=== PATIENT | male | born 1950 | race Caucasian/White ===

== ENCOUNTER → 2023-07-09 01:17 | Outpatient (CLI) | payer MEDICARE, SELFPAY ==
--- NOTE | 2023-07-09 07:29 | DI.CT_ITS ---
Exam(s) CT ABDOMEN PELVIS W EXAM: CT ABDOMEN PELVIS W CLINICAL HISTORY: abdominal pain, vomitting,r10.9,r11.10. TECHNIQUE: Imaging Protocol: Axial computed tomography images with coronal and sagittal reformatted images were created and reviewed CONTRAST MATERIAL: Intravenous: Omnipaque 350 Contrast volume:100 ml Oral: yes COMPARISON: CT ABD PELVIS WITH CONTRAST from 11/08/2009 FINDINGS: ABDOMEN: Lung Bases: Emphysematous changes. Large bleb right lower lobe. Liver: Normal density. No measurable mass. Gallbladder and biliary tract: No radiodense calculus or dilation. Pancreas: Normal density, no abnormal calcifications or inflammatory process. Spleen: Normal. Kidneys: Normal size, contour and axis. No radiodense stones or obstructive uropathy. No suspicious m asses seen. Adrenal glands: No masses seen. Abdominal Aorta: Mild mural thrombus. Mild focal delete the dilatation mid aorta 2.5 cm. Atherosclero tic changes. Soft tissues: Unremarkable. PELVIS: Bladder: Not well distended. Diffuse wall thickening. No calculi.No focal mass. Bowel: Mild diffuse dilatation of small bowel without transition point. Findings could represent ente ritis. Diverticulosis throughout colon. No evidence of diverticulitis. Sigmoid anastomosis is unremar kable.. Appendix normal. Peritoneal cavity: No ascites, collection or mesenteric inflammatory response. Bones: Degenerative disc changes in the lumbar spine. Reproductive organs: Mildly enlarged prostate. Lymph nodes: Unremarkable. Impression: Mild diffuse small bowel dilatation without wall thickening could indicate enteritis. No findings to suggest obstruction. Administered oral contrast extends to distal small bowel. Severe diverticulosis. No evidence of diverticulitis. RADIATION DOSE DELIVERED: 650.63mGy.cm Total DLP DATA REPOSITORY: All CT scans at this facility are submitted to the National Radiology Data Registry (NRDR) Dose Index Registry (DIR) with the [employer] ([employer]). RADIATION OPTIMIZATION: All CT scans at this facility use at least one of these dose optimization te chniques: automated exposure control; mA and/or kV adjustment per patient size (includes targeted exa ms where dose is matched to clinical indication); or iterative reconstruction.
[2023-07-09 09:10] LABS: Absolute Basophil Count 0.04 10^3/uL (0.0-0.2); Absolute Lymphocyte Count 2.41 10^3/uL (1.2-3.4); Absolute Monocyte Count 0.48 10^3/uL (0.1-0.8); Absolute Neutrophil Count 2.67 10^3/uL (1.2-6.7); Basophils % 0.7; Eosinophils % 3.4; HCT 42.9 % (40.0-50.0); HGB 13.8 g/dL (13.5-17.5); Lymphocytes % 41.6; MCH 27.8 pg (27.0-33.0); MCHC 32.2 % (32.0-36.0); MCV 86 fL (80-95); MPV 9.6 fL (8.0-11.0); Monocytes % 8.3; Platelet Count 263 10^3/uL (130-400); RBC 4.97 10^6/uL (4.36-5.78); RDW 13.2 % (11.8-14.1); RDW-SD 41.3 fL
[2023-07-09] MEDS: Barium Sulfate 2% W/V-Creamy Vanilla Smoothie 450 ML BTL PO (09:14)
[2023-07-09 09:35] LABS: ALT 23 U/L (16-63); AST 15 U/L (15-37); Albumin 3.6 g/dL (3.4-5.0); Alkaline Phosphatase 57 U/L (46-116); Anion Gap 5.7 mmol/L (3-11); BUN 17 mg/dL (7-18); Bilirubin, Total 0.3 mg/dL (0.2-1.0); CO2 31.3 mmol/L (21.0-32.0); CREATININE 0.8 mg/dL (0.70-1.30); Chloride 102 mmol/L (98-107); Estimated GFR 94.62 (mL/min/1.73m2); Glucose 106 mg/dL (74-106); Potassium 4.2 mmol/L (3.5-5.1); Sodium 139 mmol/L (136-145); Total Protein 6.8 g/dL (6.4-8.2)
[2023-07-09] MEDS: Omnipaque 350 MG/ML 500 ML BTL-Imaging package 100 ML IJ (10:51)
[2023-07-09] MEDS: Normal Saline - Diluent 50 ML VIAL IJ (10:52)
== END ==
PROVIDERS: Visit Provider Physician Assistant
DX: R19.8 Other specified symptoms and signs involving the digestive system and abdomen; K57.30 Diverticulosis of large intestine without perforation or abscess without bleeding
CPT/HCPCS: 80053; 74177; 85025